=== PATIENT | female | born 1930 | race Caucasian/White ===

== ENCOUNTER 2016-06-20 16:02 | Inpatient (IN) | payer MEDICARE, BC ==
--- NOTE | 2016-06-20 16:10 | EDM.PDOC ---
ED HPI GI/ABDOMINAL - General Chief Complaint: Gastrointestinal Problem Time Seen by Provider: 06/20/16 16:04 Source of Information: Reports: Patient History Limitations: Reports: No limitations - History of Present Illness INITIAL COMMENTS - FREE TEXT/NARRATIVE: This patient is an 86 year old female that presents to the ER. Patient reports that on Monday she began feeling bad. She reports generally not feeling well, having congestion, drainage, sore throat. The patient report then early this morning she began to have diffuse abdominal cramping, vomiting, and diarrhea. She reports that she went to her PCP this morning and had a physical she was previously scheduled for. She reports that she had labs done today and was called with the results. The patent reports that she was not feeling well today and generally does not feel well. She reports she would like to come back into the hospital. I have reviewed patient labs that were drawn today. She has hypokalemia with renal insufficiency. With this, diarrhea,and vomiting, I will admit this patient. Symptom Onset Date: 06/17/16 Timing/Duration: Reports: Day(s): (3) Location: generalized Quality: Reports: cramping Severity: mild Associated Symptoms (-Female): Reports: denies other symptoms, diarrhea, loss of appetite, malaise, nausea/vomiting. Denies: chest pain, back pain, groin pain, shoulder pain, constipation, bloody stools, fever/chills - Related Data Allergies/ADRs: Allergies Allergy/AdvReac Type Severity Reaction Status Date / Time No Known Allergies Allergy Verified 06/20/16 16:16 Home Meds: Home Meds Aspirin [Halfprin] 81 mg PO DAILY 06/20/16 [History] Azithromycin [Zithromax] 250 mg PO DAILY 06/20/16 [History] Betamethasone Valerate [Valisone 0.1% Crm] 1 applic TOP ASDIRECTED PRN 06/20/16 [History] Calcium Carbonate/Vitamin D3 [Calcium 500 + Vit D 400] 1 tab PO DAILY 06/20/16 [ History] Lisinopril/Hydrochlorothiazide [Zestoretic 20-25 mg Tablet] 1 tab PO DAILY 06/20 [History] Meclizine [Antivert] 25 mg PO ASDIRECTED PRN 06/20/16 [History] Multivitamin [Multivitamins] 1 tab PO DAILY 06/20/16 [History] Nystatin/Triamcin [Nystatin-Triamcinolone Cream] 1 applic TOP ASDIRECTED PRN [History] Omeprazole 20 mg PO DAILY 06/20/16 [History] Potassium Chloride 10 meq PO TID 06/20/16 [History] Propylene Glycol/Peg 400 [Systane Ultra 0.4-0.3% Eye Drp] 1 drop EYEBOTH BID [History] Simvastatin [Simvastatin] 20 mg PO DAILY 06/20/16 [History] amLODIPine Besylate [Amlodipine Besylate] 10 mg PO DAILY 06/20/16 [History] ED ROS GENERAL - Review of Systems Review Of Systems: See Below Constitutional: Reports: no symptoms HEENT: Reports: Rhinitis, Sinus problem, Throat pain Respiratory: Reports: no symptoms Cardiovascular: Reports: No symptoms Endocrine: Reports: no symptoms GI/Abdominal: Reports: Abdominal pain, Nausea, Vomiting : Reports: no symptoms Musculoskeletal: Reports: no symptoms Skin: Reports: no symptoms Neurological: Reports: no symptoms Psychiatric: Reports: No symptoms Hematologic/Lymphatic: Reports: no symptoms Immunologic: Reports: no symptoms ED EXAM, GI/ABD - Physical Exam Exam: See Below Exam Limited By: No limitations General Appearance: alert, WD/WN, no apparent distress Eyes: bilateral: normal appearance Ears: normal external exam, normal canal, hearing grossly normal, normal TMs Nose: normal inspection, normal mucosa, no blood Throat/Mouth: Normal inspection, Normal lips, Normal teeth, Normal gums, Normal oropharynx, Normal voice, No airway compromise, Other (dry oral mucosa. ) Head: atraumatic, normocephalic Neck: normal inspection, supple, non-tender, full range of motion Respiratory/Chest: no respiratory distress, lungs clear, normal breath sounds, no accessory muscle use Cardiovascular: normal peripheral pulses, regular rate, rhythm, no edema, no gallop, no JVD, no murmur, no rub GI/Abdominal: normal bowel sounds, soft, non tender, no organomegaly, no distention, no abnormal bruit, no mass Back Exam: normal inspection, full range of motion. No: CVA tenderness (L), CVA tenderness (R) Extremities: normal inspection, normal range of motion, non-tender, no pedal edema, normal capillary refill Neurological: alert, oriented, normal cognition, normal gait, no motor/sensory deficits Psychiatric: normal affect, normal mood Skin Exam: Warm, Dry, Intact, Normal color, No rash Lymphatic: no adenopathy Course - Vital Signs Last Recorded V/S: Last Vital Signs Temp 97.0 F 06/20/16 16:05 Pulse 99 06/20/16 16:05 Resp 18 06/20/16 16:05 BP 156/68 H 06/20/16 16:05 Pulse Ox 99 06/20/16 16:37 - Orders/Labs/Meds Orders: Active Orders 24 hr Category Date Time Status Patient Status [ADT] Routine ADT 06/20/16 16:37 Active Ambulate [RC] .PRN Care 06/20/16 16:37 Active Ambulate [RC] .PRN Care 06/20/16 16:37 Active Notify Provider Vital Signs [RC] .PRN Care 06/20/16 16:37 Active Oxygen Therapy [RC] .PRN Care 06/20/16 16:37 Active Up With Assistance [RC] .PRN Care 06/20/16 16:37 Active Up to Chair [RC] .PRN Care 06/20/16 16:37 Active Vital Signs [RC] 0000,0400,0800,1200,1600,2000 Care 06/20/16 16:37 Active Clear Liquid Diet [DIET] Diet 06/20/16 Dinner Active BASIC METABOLIC PANEL,BMP [CHEM] DAILY Lab 06/21/16 05:00 Ordered BASIC METABOLIC PANEL,BMP [CHEM] DAILY Lab 06/22/16 05:00 Ordered BASIC METABOLIC PANEL,BMP [CHEM] DAILY Lab 06/23/16 05:00 Ordered CBC WITH AUTO DIFF [HEME] DAILY Lab 06/21/16 05:00 Ordered CBC WITH AUTO DIFF [HEME] DAILY Lab 06/22/16 05:00 Ordered CBC WITH AUTO DIFF [HEME] DAILY Lab 06/23/16 05:00 Ordered CBC WITH AUTO DIFF [HEME] DAILY Lab 06/24/16 05:00 Ordered MAGNESIUM [CHEM] Routine Lab 06/21/16 05:00 Ordered Acetaminophen [Tylenol] Med 06/20/16 16:37 Active 650 mg PO Q4H PRN Acetaminophen/HYDROcodone [[place] 325-5 MG] Med 06/20/16 16:37 Active 1 tab PO Q4H PRN Enoxaparin [Lovenox] Med 06/20/16 17:00 Active 30 mg SUBCUT Q24H Ibuprofen [Motrin] Med 06/20/16 16:37 Active 600 mg PO Q6H PRN Morphine Med 06/20/16 16:37 Active 2 mg IVPUSH Q2H PRN Ondansetron [Zofran] Med 06/20/16 16:37 Active 4 mg IV Q6H PRN Sodium Chloride 0.9% [Saline Flush] Med 06/20/16 16:37 Active 10 ml FLUSH ASDIRECTED PRN Saline Lock Insert [OM.PC] Routine Oth 06/20/16 16:37 Ordered Resuscitation Status Routine Resus Stat 06/20/16 16:25 Ordered Medication Orders Acetaminophen (Tylenol) 650 mg PO Q4H PRN PRN Reason: Pain (Mild 1-3)/fever Acetaminophen/Hydrocodone Bitart ([place] 325-5 Mg) 1 tab PO Q4H PRN PRN Reason: Pain (moderate 4-6) Amlodipine Besylate (Norvasc) 10 mg PO DAILY [facility] Aspirin (Halfprin) 81 mg PO DAILY [facility] Ceftriaxone Sodium (Rocephin) 1 gm IVPUSH Q24H [facility] Last Admin: 06/20/16 17:08 Dose: 1 gm Enoxaparin Sodium (Lovenox) 30 mg SUBCUT Q24H [facility] Last Admin: 06/20/16 17:08 Dose: 30 mg Potassium Chloride 40 meq/ (Premix) 100 mls @ 25 mls/hr IV ONETIME ONE Stop: 06/20/16 20:50 Sodium Chloride (Normal Saline) 1,000 mls @ 1,000 mls/hr IV .BOLUS ONE Stop: 06/20/16 17:52 Last Admin: 06/20/16 17:07 Dose: 1,000 mls/hr Ibuprofen (Motrin) 600 mg PO Q6H PRN PRN Reason: Pain (mild 1-3) Morphine Sulfate (Morphine) 2 mg IVPUSH Q2H PRN PRN Reason: Pain (severe 7-10) Non-Formulary Medication (Betamethasone Valerate) 1 applic TOP ASDIRECTED PRN PRN Reason: Rash Non-Formulary Medication (Calcium Carbonate/Vitamin D3 [Calcium 500 + Vit D 400] ) 1 tab PO DAILY [facility] Non-Formulary Medication (Lisinopril/Hydrochlorothiazide [Zestoretic 20-25 Mg Tablet]) 1 tab PO DAILY [facility] Non-Formulary Medication (Meclizine [Antivert]) 25 mg PO ASDIRECTED PRN PRN Reason: Dizziness Non-Formulary Medication (Multivitamin [Multivitamins]) 1 tab PO DAILY [facility] Non-Formulary Medication (Omeprazole [Omeprazole]) 20 mg PO DAILY [facility] Non-Formulary Medication (Potassium Chloride [Potassium Chloride]) 10 meq PO TID [facility] Non-Formulary Medication (Propylene Glycol/Peg 400 [Systane Ultra 0.4-0.3% Eye Drp]) 1 drop EYEBOTH BID [facility] Nystatin/Triamcinolone Acetonide (Mycolog Crm) 0 gm TOP ASDIRECTED PRN PRN Reason: Rash Ondansetron HCl (Zofran) 4 mg IV Q6H PRN PRN Reason: Nausea/Vomiting Simvastatin (Zocor) 20 mg PO DAILY [facility] Sodium Chloride (Saline Flush) 10 ml FLUSH ASDIRECTED PRN PRN Reason: Keep Vein Open Labs: Laboratory Tests 06/20/16 06/20/16 Range/Units 16:08 16:08 Lactic Acid 0.8 (0.4-2.0) mmol/L C-Reactive Protein 0.9 H (0.2-0.8) mg/dL Meds: Medications Generic Name Dose Route Start Last Admin Trade Name Freq PRN Reason Stop Dose Admin Acetaminophen 650 mg 06/20/16 16:37 Tylenol PO Q4H PRN Pain (Mild 1-3)/fever Acetaminophen/Hydrocodone Bitart 1 tab 06/20/16 16:37 [place] 325-5 Mg PO Q4H PRN Pain (moderate 4-6) Amlodipine Besylate 10 mg 06/21/16 08:00 Norvasc PO DAILY [facility] Aspirin 81 mg 06/21/16 08:00 Halfprin PO DAILY [facility] Ceftriaxone Sodium 1 gm 06/20/16 17:00 06/20/16 17:08 Rocephin IVPUSH 1 gm Q24H [facility] Administration Enoxaparin Sodium 30 mg 06/20/16 17:00 06/20/16 17:08 Lovenox SUBCUT 30 mg Q24H [facility] Administration Potassium Chloride 40 meq/ 100 mls @ 25 mls/hr 06/20/16 16:51 Premix IV 02/27/17 20:50 ONETIME ONE Sodium Chloride 1,000 mls @ 1,000 mls/hr 06/20/16 16:53 06/20/16 17:07 Normal Saline IV 06/20/16 17:52 1,000 mls/hr .BOLUS ONE Administration Ibuprofen 600 mg 06/20/16 16:37 Motrin PO Q6H PRN Pain (mild 1-3) Morphine Sulfate 2 mg 06/20/16 16:37 Morphine IVPUSH Q2H PRN Pain (severe 7-10) Non-Formulary Medication 1 applic 06/20/16 16:48 Betamethasone Valerate TOP ASDIRECTED PRN Rash Non-Formulary Medication 1 tab 06/21/16 08:00 Calcium Carbonate/Vitamin D3 [Calcium 500 + Vit D 400] PO DAILY [facility] Non-Formulary Medication 1 tab 06/21/16 08:00 Lisinopril/Hydrochlorothiazide [Zestoretic 20-25 Mg Tablet] PO DAILY [facility] Non-Formulary Medication 25 mg 06/20/16 16:48 Meclizine [Antivert] PO ASDIRECTED PRN Dizziness Non-Formulary Medication 1 tab 06/21/16 08:00 Multivitamin [Multivitamins] PO DAILY [facility] Non-Formulary Medication 20 mg 06/21/16 08:00 Omeprazole [Omeprazole] PO DAILY [facility] Non-Formulary Medication 10 meq 06/20/16 20:00 Potassium Chloride [Potassium Chloride] PO TID [facility] Non-Formulary Medication 1 drop 06/20/16 20:00 Propylene Glycol/Peg 400 [Systane Ultra 0.4-0.3% Eye Drp] EYEBOTH BID [facility] Nystatin/Triamcinolone Acetonide 0 gm 06/20/16 16:48 Mycolog Crm TOP ASDIRECTED PRN Rash Ondansetron HCl 4 mg 06/20/16 16:37 Zofran IV Q6H PRN Nausea/Vomiting Simvastatin 20 mg 06/21/16 08:00 Zocor PO DAILY [facility] Sodium Chloride 10 ml 06/20/16 16:37 Saline Flush FLUSH ASDIRECTED PRN Keep Vein Open Discontinued Medications Generic Name Dose Route Start Last Admin Trade Name Freq PRN Reason Stop Dose Admin Sodium Chloride Confirm 06/20/16 17:16 Normal Saline Administered 06/20/16 17:17 Dose 500 mls @ as directed .ROUTE .STK-MED ONE Departure - Departure Time of Disposition: 16:09 Disposition: Admitted As Inpatient 65 Condition: fair Clinical Impression: Renal insufficiency, Hypokalemia, Gastroenteritis, Strep pharyngitis - My Orders Last 24 Hours: My Active Orders 06/20/16 16:25 Resuscitation Status Routine 06/20/16 16:37 Patient Status [ADT] Routine Ambulate [RC] .PRN Ambulate [RC] .PRN Notify Provider Vital Signs [RC] .PRN Oxygen Therapy [RC] .PRN Up With Assistance [RC] .PRN Up to Chair [RC] .PRN Vital Signs [RC] 0000,0400,0800,1200,1600,2000 Acetaminophen [Tylenol] 650 mg PO Q4H PRN Acetaminophen/HYDROcodone [Leonard 325-5 MG] 1 tab PO Q4H PRN Ibuprofen [Motrin] 600 mg PO Q6H PRN Morphine 2 mg IVPUSH Q2H PRN Ondansetron [Zofran] 4 mg IV Q6H PRN Sodium Chloride 0.9% [Saline Flush] 10 ml FLUSH ASDIRECTED PRN Saline Lock Insert [OM.PC] Routine 06/20/16 17:00 Enoxaparin [Lovenox] 30 mg SUBCUT Q24H 06/20/16 Dinner Clear Liquid Diet [DIET] 06/21/16 05:00 BASIC METABOLIC PANEL,BMP [CHEM] DAILY CBC WITH AUTO DIFF [HEME] DAILY MAGNESIUM [CHEM] Routine 06/22/16 05:00 BASIC METABOLIC PANEL,BMP [CHEM] DAILY CBC WITH AUTO DIFF [HEME] DAILY 06/23/16 05:00 BASIC METABOLIC PANEL,BMP [CHEM] DAILY CBC WITH AUTO DIFF [HEME] DAILY 06/24/16 05:00 CBC WITH AUTO DIFF [HEME] DAILY - Assessment/Plan Last 24 Hours: My Active Orders 06/20/16 16:25 Resuscitation Status Routine 06/20/16 16:37 Patient Status [ADT] Routine Ambulate [RC] .PRN Ambulate [RC] .PRN Notify Provider Vital Signs [RC] .PRN Oxygen Therapy [RC] .PRN Up With Assistance [RC] .PRN Up to Chair [RC] .PRN Vital Signs [RC] 0000,0400,0800,1200,1600,2000 Acetaminophen [Tylenol] 650 mg PO Q4H PRN Acetaminophen/HYDROcodone [Leonard 325-5 MG] 1 tab PO Q4H PRN Ibuprofen [Motrin] 600 mg PO Q6H PRN Morphine 2 mg IVPUSH Q2H PRN Ondansetron [Zofran] 4 mg IV Q6H PRN Sodium Chloride 0.9% [Saline Flush] 10 ml FLUSH ASDIRECTED PRN Saline Lock Insert [OM.PC] Routine 06/20/16 17:00 Enoxaparin [Lovenox] 30 mg SUBCUT Q24H 06/20/16 Dinner Clear Liquid Diet [DIET] 06/21/16 05:00 BASIC METABOLIC PANEL,BMP [CHEM] DAILY CBC WITH AUTO DIFF [HEME] DAILY MAGNESIUM [CHEM] Routine 06/22/16 05:00 BASIC METABOLIC PANEL,BMP [CHEM] DAILY CBC WITH AUTO DIFF [HEME] DAILY 06/23/16 05:00 BASIC METABOLIC PANEL,BMP [CHEM] DAILY CBC WITH AUTO DIFF [HEME] DAILY 06/24/16 05:00 CBC WITH AUTO DIFF [HEME] DAILY Plan: PLEASE SEE RN NOTE FOR PFSH. PLEASE USE MY ER H&P ADMIT H&P.
[2016-06-20] MEDS ORDERED: Acetaminophen/HYDROcodone 325-5 MG Tab PO PRN (16:37)
[2016-06-20] MEDS ORDERED: Ondansetron 4 MG/2 ML SDV IV PRN (16:37)
[2016-06-20] MEDS ORDERED: Sodium Chloride 0.9% 10 ML Syringe FLUSH PRN (16:37)
[2016-06-20] MEDS ORDERED: Morphine 2 MG/ML Syringe IVPUSH PRN (16:37)
[2016-06-20] MEDS ORDERED: Ibuprofen 200 MG Tab PO PRN (16:37)
[2016-06-20] MEDS ORDERED: Non-Formulary Medication 1 Each (Meclizine [Antivert] 25 MG) PO PRN (16:48)
[2016-06-20] MEDS ORDERED: BETAMETHASONE VALERATE TOP PRN (16:48)
[2016-06-20] MEDS ORDERED: Potassium Chloride 40 MEQ in Premix Bag 1 BAG IV ONE (16:51)
[2016-06-20] MEDS ORDERED: Sodium Chloride 0.9% 1,000 ML IV ONE (16:53)
[2016-06-20] MEDS ORDERED: cefTRIAXone 1 GM Vial IVPUSH SCH (17:00)
[2016-06-20] MEDS ORDERED: Sodium Chloride 0.9% 500 ML IV SCH (17:00)
[2016-06-20] MEDS ORDERED: Enoxaparin 30 MG/0.3 ML Syringe SUBCUT SCH (17:00)
[2016-06-20] MEDS ORDERED: Sodium Chloride 0.9% 500 ML ONE (17:16)
[2016-06-20] MEDS ORDERED: Non-Formulary Medication 1 Each (Potassium Chloride [Potassium Chloride] 10 MEQ) PO SCH (20:00)
[2016-06-20] MEDS: Potassium Chloride 10 MEQ Tab.ER PO SCH (20:18)
[2016-06-20] MEDS: [UNRECOGNIZED DRUG - OTHER] EYEBOTH SCH (20:19)
[2016-06-20] MEDS: PEG EYEBOTH SCH (20:19)
[2016-06-20] MEDS: PROPYLENE GLYCOL EYEBOTH SCH (20:19)
[2016-06-21] MEDS: Acetaminophen 325 MG Tab PO PRN ×3 (04:26→23:30)
[2016-06-21] MEDS: Potassium Chloride 10 MEQ Tab.ER PO SCH ×3 (07:14→16:43)
[2016-06-21] MEDS: Aspirin 81 MG Tab.EC PO SCH (07:14)
[2016-06-21] MEDS: amLODIPine 10 MG Tab PO SCH (07:14)
[2016-06-21] MEDS ORDERED: Simvastatin 40 MG Tab PO SCH (08:00)
[2016-06-21] MEDS ORDERED: Non-Formulary Medication 1 Each (Multivitamin [Multivitamins] 1 TAB) PO SCH (08:00)
[2016-06-21] MEDS ORDERED: LISINOPRIL PO SCH (08:00)
[2016-06-21] MEDS ORDERED: HYDROCHLOROTHIAZIDE PO SCH (08:00)
[2016-06-21] MEDS ORDERED: [UNRECOGNIZED DRUG - OTHER] PO SCH (08:00)
[2016-06-21] MEDS ORDERED: Non-Formulary Medication 1 Each (Omeprazole [Omeprazole] 20 MG) PO SCH (08:00)
[2016-06-21] MEDS ORDERED: Meclizine 12.5 MG Tab PO PRN (08:11)
[2016-06-21] MEDS ORDERED: Magnesium Sulfate/D5W 2 GM in Premix Bag 1 BAG IV ONE (09:08)
[2016-06-21] MEDS: Hydrochlorothiazide 25 MG Tab PO SCH (09:25)
[2016-06-21] MEDS: Lisinopril 20 MG Tab PO SCH (09:26)
[2016-06-21] MEDS: Polyvinyl Alcohol 1.4% Ophth Soln 15 ML Bottle EYEBOTH SCH ×2 (09:26→20:16)
[2016-06-21] MEDS: Multivitamin Tab PO SCH (09:26)
[2016-06-21] MEDS: Calcium Carbonate/Vitamin D3 1250 MG-200 Unit Tab PO SCH (09:26)
[2016-06-21] MEDS: Pantoprazole 40 MG Tab.CR PO SCH (09:33)
--- NOTE | 2016-06-21 09:36 | PCM.PN ---
- General Info Date of Service: 06/21/16 Admission Dx/Problem (Free Text): Strep Throat Hypokalemia Functional Status: Reports: pain controlled, tolerating diet, ambulating - Review of Systems General: Reports: fever, weakness, fatigue HEENT: Reports: sinus congestion, sore throat, rhinitis. Denies: ear pain Pulmonary: Reports: cough. Denies: shortness of breath, wheezing Cardiovascular: Denies: chest pain, edema, lightheadedness Gastrointestinal: Denies: Constipation, Diarrhea (diarrhea improved), Nausea, Vomiting Genitourinary: Reports: no symptoms Musculoskeletal: Reports: no symptoms Skin: Reports: no symptoms Neurological: Reports: no symptoms Psychiatric: Reports: no symptoms - Patient Data Vitals - most recent: Last Vital Signs Temp 99.2 F 06/21/16 07:23 Pulse 80 06/21/16 07:23 Resp 18 06/21/16 07:23 BP 133/64 06/21/16 07:23 Pulse Ox 94 L 06/21/16 07:23 Weight - most recent: 153 lb 8 oz Lab Results last 24 hrs: Laboratory Results - last 24 hr 06/21/16 06/21/16 Range/Units 07:00 07:00 WBC 5.3 (5.0-10.0) 10^3/uL RBC 4.13 (4.00-5.50) 10^6/uL Hgb 12.2 (12.0-16.0) g/dL Hct 34.6 L (37.0-47.0) % MCV 83.8 (82.0-94.0) fL MCH 29.5 (27.0-32.0) pg MCHC 35.3 (33.0-38.0) g/dL RDW Coeff of Jono 12.2 (11.0-15.0) % Plt Count 148 L (150-400) 10^3/uL Neut % (Auto) 61.5 (35-85) % Lymph % (Auto) 22.9 (10-55) % [place] % (Auto) 15.0 (0-16) % Eos % (Auto) 0.2 (0-5) % Baso % (Auto) 0.4 (0-3) % Neut # 3.25 (1.80-7.00) 10^3/uL Lymph # 1.21 (1.00-4.80) 10^3/uL [place] # 0.79 (0.00-0.80) 10^3/uL Eos # 0.01 (0.00-0.45) 10^3/uL Baso # 0.02 10^3/uL Sodium 137 (136-145) mEq/L Potassium 3.4 L (3.5-5.0) mEq/L Chloride 101 (98-106) mEq/L Carbon Dioxide 27 (21-32) mmol/L BUN 14 (7-18) mg/dL Creatinine 1.0 (0.6-1.0) mg/dL Est Cr Clr Drug Dosing 34.23 mL/min Estimated GFR (MDRD) 52 L (>=60) mL/min Glucose 91 (75-99) mg/dL Calcium 8.2 L (8.4-10.1) mg/dL Magnesium 1.5 L (1.8-2.4) mg/dL Med Orders - Current: Current Medications Acetaminophen (Tylenol) 650 mg PO Q4H PRN PRN Reason: Pain (Mild 1-3)/fever Last Admin: 06/21/16 04:26 Dose: 650 mg Acetaminophen/Hydrocodone Bitart ([place] 325-5 Mg) 1 tab PO Q4H PRN PRN Reason: Pain (moderate 4-6) Amlodipine Besylate (Norvasc) 10 mg PO DAILY [facility] Last Admin: 06/21/16 07:14 Dose: 10 mg Artificial Tears (Liquitears 1.4% Ophth Soln) 0 ml EYEBOTH BID [facility] Aspirin (Halfprin) 81 mg PO DAILY [facility] Last Admin: 06/21/16 07:14 Dose: 81 mg Calcium Carbonate (Calcium Carbonate/Vitamin D 1250 Mg-200 Unit) 1 tab PO DAILY [facility] Ceftriaxone Sodium (Rocephin) 1 gm IVPUSH Q24H [facility] Enoxaparin Sodium (Lovenox) 30 mg SUBCUT Q24H [facility] Hydrochlorothiazide (Hydrochlorothiazide) 25 mg PO DAILY [facility] Magnesium Sulfate/Dextrose 2 (gm/ Premix) 200 mls @ 100 mls/hr IV ONETIME ONE Stop: 06/21/16 11:07 Ibuprofen (Motrin) 600 mg PO Q6H PRN PRN Reason: Pain (mild 1-3) Lisinopril (Prinivil) 20 mg PO DAILY [facility] Meclizine HCl (Antivert) 25 mg PO TID PRN PRN Reason: Dizziness Morphine Sulfate (Morphine) 2 mg IVPUSH Q2H PRN PRN Reason: Pain (severe 7-10) Multivitamins/Minerals/Vitamin C (Tab-A-Dean) 1 tab PO DAILY [facility] Non-Formulary Medication (Betamethasone Valerate) 1 applic TOP ASDIRECTED PRN PRN Reason: Rash Nystatin/Triamcinolone Acetonide (Mycolog Crm) 0 gm TOP ASDIRECTED PRN PRN Reason: Rash Ondansetron HCl (Zofran) 4 mg IV Q6H PRN PRN Reason: Nausea/Vomiting Pantoprazole Sodium (Protonix) 40 mg PO ACBRK [facility] Potassium Chloride (Klor-Con 10) 10 meq PO TIDMEALS [facility] Simvastatin (Zocor) 20 mg PO BEDTIME [facility] Sodium Chloride (Saline Flush) 10 ml FLUSH ASDIRECTED PRN PRN Reason: Keep Vein Open Discontinued Medications Ceftriaxone Sodium (Rocephin) 1 gm IVPUSH Q24H [facility] Last Admin: 06/20/16 17:08 Dose: 1 gm Enoxaparin Sodium (Lovenox) 30 mg SUBCUT Q24H [facility] Last Admin: 06/20/16 17:08 Dose: 30 mg Potassium Chloride 40 meq/ (Premix) 100 mls @ 25 mls/hr IV ONETIME ONE Stop: 06/20/16 20:50 Last Admin: 06/20/16 18:20 Dose: 25 mls/hr Sodium Chloride (Normal Saline) 1,000 mls @ 1,000 mls/hr IV .BOLUS ONE Stop: 06/20/16 17:52 Last Admin: 06/20/16 17:07 Dose: 1,000 mls/hr Sodium Chloride (Normal Saline) Confirm Administered Dose 500 mls @ as directed .ROUTE .STK-MED ONE Stop: 06/20/16 17:17 Last Admin: 06/20/16 19:46 Dose: Not Given Sodium Chloride (Normal Saline) 500 mls @ 250 mls/hr IV ASDIRECTED [facility] Stop: 06/21/16 18:59 Last Admin: 06/20/16 20:21 Dose: 250 mls/hr Non-Formulary Medication (Calcium Carbonate/Vitamin D3 [Calcium 500 + Vit D 400] ) 1 tab PO DAILY [facility] Non-Formulary Medication (Meclizine [Antivert]) 25 mg PO ASDIRECTED PRN PRN Reason: Dizziness Non-Formulary Medication (Multivitamin [Multivitamins]) 1 tab PO DAILY [facility] Non-Formulary Medication (Omeprazole [Omeprazole]) 20 mg PO DAILY [facility] Non-Formulary Medication (Potassium Chloride [Potassium Chloride]) 10 meq PO TID [facility] Last Admin: 06/20/16 20:43 Dose: Not Given Non-Formulary Medication (Propylene Glycol/Peg 400 [Systane Ultra 0.4-0.3% Eye Drp]) 1 drop EYEBOTH BID [facility] Last Admin: 06/20/16 20:19 Dose: Not Given Potassium Chloride (Klor-Con 10) 10 meq PO TID [facility] Last Admin: 06/21/16 07:14 Dose: 10 meq Simvastatin (Zocor) 20 mg PO DAILY [facility] Last Admin: 06/21/16 07:15 Dose: 20 mg - Exam General: alert, oriented HEENT: Mucous membr. moist/pink Neck: supple Lungs: Clear to auscultation, Normal respiratory effort Cardiovascular: regular rate, regular rhythm Abdomen: bowel sounds present, soft, no tenderness Extremities: no edema Skin: warm, dry Neurological: no new focal deficit Psy/Mental Status: alert, normal affect, normal mood - Problem List & Annotations (1) Hypokalemia SNOMED Code(s): 21746526 Code(s): E87.6 - HYPOKALEMIA Status: Acute Priority: High Current Visit : Yes (2) Strep pharyngitis SNOMED Code(s): 87880107, 603846809 Code(s): J02.0 - STREPTOCOCCAL PHARYNGITIS Status: Acute Priority: High Current Visit: Yes - Problem List Review Problem List Initiated/Reviewed/Updated: Yes - My Orders Last 24 Hours: My Active Orders 06/21/16 09:08 Magnesium Sulfate/D5W [Magnesium 1 GM in D5W 100 ML] 2 gm Premix Bag 1 bag IV ONETIME 06/22/16 05:11 MAGNESIUM [CHEM] Routine - Assessment Assessment:: Strep Pharyngitis Hypokalemia - Plan Plan:: Patient feeling better today. She states the diarrhea has resolved. Throat is feeling somewhat better. Mild cough yet. She did have hypokalemia yesterday. lso noted on her physical labs that were done in [place]. She was given a potassium IV bump yesterday. Potassium now improved at 3.4. Magnesium is low today at 1.5. Will correct Magnesium today with 2 gm IV Magnesium. Recheck labs in am. Continue oral potassium. Will continue with IV Rocephin. Possible discharge home tomorrow.
[2016-06-21] MEDS: [UNRECOGNIZED DRUG - OTHER] EYEBOTH SCH (09:49)
[2016-06-21] MEDS: PROPYLENE GLYCOL EYEBOTH SCH (09:49)
[2016-06-21] MEDS: PEG EYEBOTH SCH (09:49)
[2016-06-21] MEDS: Enoxaparin 30 MG/0.3 ML Syringe SUBCUT SCH (20:17)
[2016-06-21] MEDS: cefTRIAXone 1 GM Vial IVPUSH SCH (20:18)
[2016-06-22] MEDS: Pantoprazole 40 MG Tab.CR PO SCH (06:27)
[2016-06-22] MEDS: Calcium Carbonate/Vitamin D3 1250 MG-200 Unit Tab PO SCH (07:43)
[2016-06-22] MEDS: Hydrochlorothiazide 25 MG Tab PO SCH (07:44)
[2016-06-22] MEDS: Aspirin 81 MG Tab.EC PO SCH (07:44)
[2016-06-22] MEDS: Potassium Chloride 10 MEQ Tab.ER PO SCH ×3 (07:44→17:34)
[2016-06-22] MEDS: Lisinopril 20 MG Tab PO SCH (07:45)
[2016-06-22] MEDS: amLODIPine 10 MG Tab PO SCH (07:45)
[2016-06-22] MEDS: Polyvinyl Alcohol 1.4% Ophth Soln 15 ML Bottle EYEBOTH SCH ×2 (07:45→19:35)
[2016-06-22] MEDS: Multivitamin Tab PO SCH (07:46)
[2016-06-22] MEDS ORDERED: Potassium Chloride 40 MEQ in Premix Bag 1 BAG IV ONE (09:30)
[2016-06-22] MEDS: Metoprolol Tartrate 25 MG Tab PO SCH ×2 (09:52→19:33)
[2016-06-22] MEDS: Warfarin 5 MG Tab PO ONE (10:23)
--- NOTE | 2016-06-22 12:59 | PCM.PN ---
- General Info Date of Service: 06/22/16 Admission Dx/Problem (Free Text): Strep Throat Hypokalemia Functional Status: Reports: pain controlled, tolerating diet, ambulating, new symptoms (palpitations) - Review of Systems General: Denies: fever, weakness, fatigue HEENT: Reports: sore throat. Denies: ear pain, sinus congestion, rhinitis Pulmonary: Denies: shortness of breath, cough, wheezing Cardiovascular: Reports: palpitations. Denies: chest pain, edema, lightheadedness Gastrointestinal: Denies: Abdominal pain, Diarrhea, Nausea, Vomiting Genitourinary: Reports: no symptoms Musculoskeletal: Reports: no symptoms Skin: Reports: no symptoms Neurological: Reports: no symptoms - Patient Data Vitals - most recent: Last Vital Signs Temp 98.6 F 06/22/16 08:00 Pulse 130 H 06/22/16 09:52 Resp 18 06/22/16 08:00 BP 136/69 06/22/16 09:52 Pulse Ox 94 L 06/22/16 08:00 Weight - most recent: 153 lb 8 oz Lab Results last 24 hrs: Laboratory Results - last 24 hr 06/22/16 06/22/16 06/22/16 Range/Units 07:46 07:46 09:04 WBC 5.3 (5.0-10.0) 10^3/uL RBC 4.46 (4.00-5.50) 10^6/uL Hgb 13.2 (12.0-16.0) g/dL Hct 37.7 (37.0-47.0) % MCV 84.5 (82.0-94.0) fL MCH 29.6 (27.0-32.0) pg MCHC 35.0 (33.0-38.0) g/dL RDW Coeff of Jono 12.6 (11.0-15.0) % Plt Count 146 L (150-400) 10^3/uL Neut % (Auto) 58.4 (35-85) % Lymph % (Auto) 26.5 (10-55) % [place] % (Auto) 14.1 (0-16) % Eos % (Auto) 0.6 (0-5) % Baso % (Auto) 0.4 (0-3) % Neut # 3.07 (1.80-7.00) 10^3/uL Lymph # 1.39 (1.00-4.80) 10^3/uL [place] # 0.74 (0.00-0.80) 10^3/uL Eos # 0.03 (0.00-0.45) 10^3/uL Baso # 0.02 10^3/uL PT 10.4 (9.7-12.3) SEC INR 0.98 (0.92-1.18) Sodium 140 (136-145) mEq/L Potassium 3.0 L (3.5-5.0) mEq/L Chloride 103 (98-106) mEq/L Carbon Dioxide 27 (21-32) mmol/L BUN 9 (7-18) mg/dL Creatinine 1.0 (0.6-1.0) mg/dL Est Cr Clr Drug Dosing 34.23 mL/min Estimated GFR (MDRD) 52 L (>=60) mL/min Glucose 90 (75-99) mg/dL Calcium 8.5 (8.4-10.1) mg/dL Magnesium 1.8 (1.8-2.4) mg/dL Med Orders - Current: Current Medications Acetaminophen (Tylenol) 650 mg PO Q4H PRN PRN Reason: Pain (Mild 1-3)/fever Last Admin: 06/21/16 23:30 Dose: 650 mg Acetaminophen/Hydrocodone Bitart ([place] 325-5 Mg) 1 tab PO Q4H PRN PRN Reason: Pain (moderate 4-6) Amlodipine Besylate (Norvasc) 5 mg PO DAILY [facility] Artificial Tears (Liquitears 1.4% Ophth Soln) 0 ml EYEBOTH BID [facility] Last Admin: 06/22/16 07:45 Dose: 1 drop Aspirin (Halfprin) 81 mg PO DAILY [facility] Last Admin: 06/22/16 07:44 Dose: 81 mg Calcium Carbonate (Calcium Carbonate/Vitamin D 1250 Mg-200 Unit) 1 tab PO DAILY [facility] Last Admin: 06/22/16 07:43 Dose: 1 tab Ceftriaxone Sodium (Rocephin) 1 gm IVPUSH Q24H [facility] Last Admin: 06/21/16 20:18 Dose: 1 gm Enoxaparin Sodium (Lovenox) 30 mg SUBCUT Q24H [facility] Last Admin: 06/21/16 20:17 Dose: 30 mg Hydrochlorothiazide (Hydrochlorothiazide) 25 mg PO DAILY [facility] Last Admin: 06/22/16 07:44 Dose: 25 mg Potassium Chloride 40 meq/ (Premix) 100 mls @ 16.667 mls/hr IV ONETIME ONE Stop: 06/22/16 15:29 Last Admin: 06/22/16 09:43 Dose: 16.667 mls/hr Ibuprofen (Motrin) 600 mg PO Q6H PRN PRN Reason: Pain (mild 1-3) Lisinopril (Prinivil) 20 mg PO DAILY [facility] Last Admin: 06/22/16 07:45 Dose: 20 mg Meclizine HCl (Antivert) 25 mg PO TID PRN PRN Reason: Dizziness Metoprolol Tartrate (Lopressor) 37.5 mg PO BID [facility] Last Admin: 06/22/16 09:52 Dose: 37.5 mg Morphine Sulfate (Morphine) 2 mg IVPUSH Q2H PRN PRN Reason: Pain (severe 7-10) Multivitamins/Minerals/Vitamin C (Tab-A-Dean) 1 tab PO DAILY [facility] Last Admin: 06/22/16 07:46 Dose: 1 tab Non-Formulary Medication (Betamethasone Valerate) 1 applic TOP ASDIRECTED PRN PRN Reason: Rash Daily Coumadin Order (--Ask Provider) 1 each .XX DAILY [facility] Nystatin/Triamcinolone Acetonide (Mycolog Crm) 0 gm TOP ASDIRECTED PRN PRN Reason: Rash Ondansetron HCl (Zofran) 4 mg IV Q6H PRN PRN Reason: Nausea/Vomiting Pantoprazole Sodium (Protonix) 40 mg PO ACBRK [facility] Last Admin: 06/22/16 06:27 Dose: 40 mg Potassium Chloride (Klor-Con 10) 10 meq PO TIDMEALS [facility] Last Admin: 06/22/16 12:15 Dose: 10 meq Simvastatin (Zocor) 20 mg PO BEDTIME [facility] Sodium Chloride (Saline Flush) 10 ml FLUSH ASDIRECTED PRN PRN Reason: Keep Vein Open Discontinued Medications Amlodipine Besylate (Norvasc) 10 mg PO DAILY [facility] Last Admin: 06/22/16 07:45 Dose: 10 mg Ceftriaxone Sodium (Rocephin) 1 gm IVPUSH Q24H [facility] Last Admin: 06/20/16 17:08 Dose: 1 gm Enoxaparin Sodium (Lovenox) 30 mg SUBCUT Q24H [facility] Last Admin: 06/20/16 17:08 Dose: 30 mg Potassium Chloride 40 meq/ (Premix) 100 mls @ 25 mls/hr IV ONETIME ONE Stop: 06/20/16 20:50 Last Admin: 06/20/16 18:20 Dose: 25 mls/hr Sodium Chloride (Normal Saline) 1,000 mls @ 1,000 mls/hr IV .BOLUS ONE Stop: 06/20/16 17:52 Last Admin: 06/20/16 17:07 Dose: 1,000 mls/hr Sodium Chloride (Normal Saline) Confirm Administered Dose 500 mls @ as directed .ROUTE .STK-MED ONE Stop: 06/20/16 17:17 Last Admin: 06/20/16 19:46 Dose: Not Given Sodium Chloride (Normal Saline) 500 mls @ 250 mls/hr IV ASDIRECTED ROMERO Stop: 06/21/16 18:59 Last Admin: 06/20/16 20:21 Dose: 250 mls/hr Magnesium Sulfate/Dextrose 2 (gm/ Premix) 200 mls @ 100 mls/hr IV ONETIME ONE Stop: 06/21/16 11:07 Last Admin: 06/21/16 09:27 Dose: 100 mls/hr Non-Formulary Medication (Calcium Carbonate/Vitamin D3 [Calcium 500 + Vit D 400] ) 1 tab PO DAILY [facility] Last Admin: 06/21/16 09:49 Dose: Not Given Non-Formulary Medication (Meclizine [Antivert]) 25 mg PO ASDIRECTED PRN PRN Reason: Dizziness Non-Formulary Medication (Multivitamin [Multivitamins]) 1 tab PO DAILY [facility] Last Admin: 06/21/16 09:49 Dose: Not Given Non-Formulary Medication (Omeprazole [Omeprazole]) 20 mg PO DAILY [facility] Last Admin: 06/21/16 09:49 Dose: Not Given Non-Formulary Medication (Potassium Chloride [Potassium Chloride]) 10 meq PO TID [facility] Last Admin: 06/20/16 20:43 Dose: Not Given Non-Formulary Medication (Propylene Glycol/Peg 400 [Systane Ultra 0.4-0.3% Eye Drp]) 1 drop EYEBOTH BID [facility] Last Admin: 06/21/16 09:49 Dose: Not Given Potassium Chloride (Klor-Con 10) 10 meq PO TID [facility] Last Admin: 06/21/16 07:14 Dose: 10 meq Simvastatin (Zocor) 20 mg PO DAILY [facility] Last Admin: 06/21/16 07:15 Dose: 20 mg Warfarin Sodium (Coumadin) 5 mg PO ONETIME ONE Stop: 06/22/16 09:04 Last Admin: 06/22/16 10:23 Dose: 5 mg - Exam General: alert, oriented HEENT: Mucous membr. moist/pink Neck: supple Lungs: Clear to auscultation, Normal respiratory effort Cardiovascular: irregular rhythm Abdomen: bowel sounds present, soft, no tenderness Extremities: no edema Skin: warm, dry Neurological: no new focal deficit Psy/Mental Status: alert, normal affect, normal mood - Problem List & Annotations (1) Hypokalemia SNOMED Code(s): 97182398 Code(s): E87.6 - HYPOKALEMIA Status: Acute Priority: High Current Visit : Yes (2) Strep pharyngitis SNOMED Code(s): 19738637, 394799976 Code(s): J02.0 - STREPTOCOCCAL PHARYNGITIS Status: Acute Priority: High Current Visit: Yes (3) Atrial fibrillation with RVR SNOMED Code(s): 482893663496012 Code(s): I48.91 - UNSPECIFIED ATRIAL FIBRILLATION Status: Acute Priority : High Current Visit: Yes - Problem List Review Problem List Initiated/Reviewed/Updated: Yes - My Orders Last 24 Hours: My Active Orders 06/22/16 09:15 Metoprolol Tartrate [Lopressor] 37.5 mg PO BID 06/22/16 09:30 Potassium Chloride [KCL 40 MEQ in Water 100 ML] 40 meq Premix Bag 1 bag IV ONETIME 06/23/16 08:00 Non-Formulary Medication [NF Drug] 1 each .XX DAILY amLODIPine [Norvasc] 5 mg PO DAILY 06/23/16 09:04 INR,PT,PROTHROMBIN TIME [COAG] DAILY 06/24/16 09:04 INR,PT,PROTHROMBIN TIME [COAG] DAILY - Assessment Assessment:: Strep Pharyngitis Hypokalemia Atrial Fib with RVR - Plan Plan:: Patient feeling better today. She states the diarrhea has resolved. Throat is feeling somewhat better. Mild cough yet. She did have hypokalemia yesterday. lso noted on her physical labs that were done in [place]. She was given a potassium IV bump yesterday. Potassium now improved at 3.4. Magnesium is low today at 1.5. Will correct Magnesium today with 2 gm IV Magnesium. Recheck labs in am. Continue oral potassium. Will continue with IV Rocephin. Possible discharge home tomorrow. 06-22-2016 Patient admitting to palpitations today. New onset atrial fib with RVR noted on telemetry. Patient denies pain with this. Does feel her heart pounding. No shortness of breath or feeling lightheaded. Patient does not recall ever having atrial fib in the past. Admits to mild sore throat but improved. Mild cough. Patient's potassium down to 3.0 today. Magnesium improved to 1.8. Adjustments made to medications. Decreased Norvasc to 5 mg daily. Start metoprolol 37.5 mg BID. Start Coumadin. Obtain an echo. Repeat labs in am to include an INR. Will give a potassium IV bump today as well and continue the 30 meq of potassium daily. Patient aware of all the changes. Reevaluate discharge potential in am.
[2016-06-22] MEDS: cefTRIAXone 1 GM Vial IVPUSH SCH (19:32)
[2016-06-22] MEDS: Enoxaparin 30 MG/0.3 ML Syringe SUBCUT SCH (19:34)
[2016-06-22] MEDS ORDERED: Simvastatin 20 MG Tab PO SCH (20:00)
[2016-06-23] MEDS: Pantoprazole 40 MG Tab.CR PO SCH (06:50)
[2016-06-23 07:18] VITALS: BP 142/60
[2016-06-23] MEDS: Potassium Chloride 10 MEQ Tab.ER PO SCH ×2 (07:45→12:48)
[2016-06-23] MEDS: Aspirin 81 MG Tab.EC PO SCH (07:46)
[2016-06-23] MEDS: Metoprolol Tartrate 25 MG Tab PO SCH (07:46)
[2016-06-23] MEDS: Multivitamin Tab PO SCH (07:46)
[2016-06-23] MEDS: Calcium Carbonate/Vitamin D3 1250 MG-200 Unit Tab PO SCH (07:46)
[2016-06-23] MEDS: Lisinopril 20 MG Tab PO SCH (07:47)
[2016-06-23] MEDS: Hydrochlorothiazide 25 MG Tab PO SCH (07:47)
[2016-06-23] MEDS: Polyvinyl Alcohol 1.4% Ophth Soln 15 ML Bottle EYEBOTH SCH (07:49)
[2016-06-23] MEDS ORDERED: [UNRECOGNIZED DRUG - OTHER] SCH (08:00)
[2016-06-23] MEDS ORDERED: amLODIPine 2.5 MG Tab PO SCH (08:00)
--- NOTE | 2016-06-23 11:37 | PCM.DCSUM1 ---
Discharge Summary - Hospital Course Free Text/Narrative:: Patient admitted Monday evening due to complaints of weakness, sore throat, diarrhea. Patient had a physical that day and it was also noted to be hypokalemia. Potassium in clinic 2.9. Admitted for dehydration, congestion and abdominal cramping. Influenza screens were negative. Strep screen positive. Started on Rocephin. Given IV with potassium. - Discharge Data Discharge Date: 06/23/16 Discharge Disposition: Home, Self-Care 01 Condition: Good - Discharge Diagnosis/Problem(s) (1) Hypokalemia SNOMED Code(s): 42542758 ICD Code: E87.6 - HYPOKALEMIA Status: Acute Priority: High Current Visit: Yes (2) Strep pharyngitis SNOMED Code(s): 51622266, 267632763 ICD Code: J02.0 - STREPTOCOCCAL PHARYNGITIS Status: Acute Priority: High Current Visit: Yes (3) Atrial fibrillation with RVR SNOMED Code(s): 093565050635291 ICD Code: I48.91 - UNSPECIFIED ATRIAL FIBRILLATION Status: Acute Priority : High Current Visit: Yes - Patient Summary/Data Complications: new onset atrial fib Hospital Course: Patient did have resolution of her diarrhea, abdominal cramping and sore throat during stay. Kept on IV Rocephin. She has had return of her appetite and eating well. Patient did develop new onset atrial fib with RVR. Started on Coumadin and metoprolol. Reduced her dose of Norvasc to 5 mg daily. She did continue to have persisting issues with hypokalemia. Did get 2 bumps of 40 meq of IV potassium and started on oral as well. Magnesium was low so was given 2 gm of replacement with mag sulfate. Today patient has converted back to a NSR. Rate is controlled in the 80s. Potassium normal at 3.7. INR yet low but will see Dr. Cooper on Monday and have this rechecked at that time. - Patient Instructions Diet: Usual Diet as Tolerated Activity: As Tolerated - Discharge Plan Prescriptions/Med Rec: Cefuroxime [Ceftin] 250 mg PO BID #14 tablet Metoprolol Tartrate [Lopressor] 37.5 mg PO BID #60 tablet Warfarin [Coumadin] 5 mg PO DAILY #30 tablet amLODIPine [Norvasc] 5 mg PO DAILY #30 tablet Home Medications: Home Meds Aspirin [Halfprin] 81 mg PO DAILY 06/20/16 [History] Azithromycin [Zithromax] 250 mg PO DAILY 06/20/16 [History] Betamethasone Valerate [Valisone 0.1% Crm] 1 applic TOP ASDIRECTED PRN 06/20/16 [History] Calcium Carbonate/Vitamin D3 [Calcium 500 + Vit D 400] 1 tab PO DAILY 06/20/16 [ History] Lisinopril/Hydrochlorothiazide [Zestoretic 20-25 mg Tablet] 1 tab PO DAILY 06/20 [History] Meclizine [Antivert] 25 mg PO ASDIRECTED PRN 06/20/16 [History] Multivitamin [Multivitamins] 1 tab PO DAILY 06/20/16 [History] Nystatin/Triamcin [Nystatin-Triamcinolone Cream] 1 applic TOP ASDIRECTED PRN [History] Omeprazole 20 mg PO DAILY 06/20/16 [History] Potassium Chloride 10 meq PO TID 06/20/16 [History] Propylene Glycol/Peg 400 [Systane Ultra 0.4-0.3% Eye Drp] 1 drop EYEBOTH BID [History] Simvastatin 20 mg PO DAILY 06/20/16 [History] Cefuroxime [Ceftin] 250 mg PO BID #14 tablet 06/23/16 [Rx] Metoprolol Tartrate [Lopressor] 37.5 mg PO BID #60 tablet 06/23/16 [Rx] Warfarin [Coumadin] 5 mg PO DAILY #30 tablet 06/23/16 [Rx] amLODIPine [Norvasc] 5 mg PO DAILY #30 tablet 06/23/16 [Rx] Forms: ED Department Discharge Referrals: Benjamin Cooper MD [Primary Care Provider] - (Lab and see Dr. Cooper on Monday in [place]- June 27) - Discharge Summary/Plan Comment DC Time >30 min.: No Discharge Summary/Plan Comment: Discharge home. Continue metoprolol, reduce Norvasc. Start Coumadin 5 mg daily. Continue Ceftin for 7 more days. Will recheck INR and see Dr. Cooper on Monday in [place]. - General Info Date of Service: 06/23/16 Admission Dx/Problem (Free Text: Strep Throat Hypokalemia Functional Status: Reports: pain controlled, tolerating diet, ambulating - Review of Systems General: Denies: fever, weakness, fatigue HEENT: Denies: dysphasia, sinus congestion, sore throat, rhinitis Pulmonary: Denies: shortness of breath, cough, wheezing Cardiovascular: Denies: chest pain, edema, lightheadedness Gastrointestinal: Denies: Abdominal pain, Constipation, Diarrhea, Nausea, Vomiting Genitourinary: Reports: no symptoms Musculoskeletal: Reports: no symptoms Skin: Reports: no symptoms Neurological: Reports: no symptoms - Patient Data Vitals - Most Recent: Last Vital Signs Temp 98.6 F 06/23/16 07:17 Pulse 77 06/23/16 07:46 Resp 16 06/23/16 07:17 BP 142/60 H 06/23/16 07:47 Pulse Ox 94 L 06/23/16 07:17 Weight - Most Recent: 153 lb 8 oz Lab Results - Last 24 hrs: Laboratory Results - last 24 hr 06/23/16 06/23/16 06/23/16 Range/Units 07:42 07:42 07:42 WBC 5.3 (5.0-10.0) 10^3/uL RBC 4.37 (4.00-5.50) 10^6/uL Hgb 12.9 (12.0-16.0) g/dL Hct 37.4 (37.0-47.0) % MCV 85.6 (82.0-94.0) fL MCH 29.5 (27.0-32.0) pg MCHC 34.5 (33.0-38.0) g/dL RDW Coeff of Jono 12.7 (11.0-15.0) % Plt Count 148 L (150-400) 10^3/uL Neut % (Auto) 60.3 (35-85) % Lymph % (Auto) 24.4 (10-55) % [place] % (Auto) 14.1 (0-16) % Eos % (Auto) 0.6 (0-5) % Baso % (Auto) 0.6 (0-3) % Neut # 3.22 (1.80-7.00) 10^3/uL Lymph # 1.30 (1.00-4.80) 10^3/uL [place] # 0.75 (0.00-0.80) 10^3/uL Eos # 0.03 (0.00-0.45) 10^3/uL Baso # 0.03 10^3/uL PT 10.9 (9.7-12.3) SEC INR 1.03 (0.92-1.18) Sodium 140 (136-145) mEq/L Potassium 3.7 D (3.5-5.0) mEq/L Chloride 104 (98-106) mEq/L Carbon Dioxide 27 (21-32) mmol/L BUN 13 (7-18) mg/dL Creatinine 1.0 (0.6-1.0) mg/dL Est Cr Clr Drug Dosing 34.23 mL/min Estimated GFR (MDRD) 52 L (>=60) mL/min Glucose 95 (75-99) mg/dL Calcium 8.6 (8.4-10.1) mg/dL Med Orders - Current: Current Medications Acetaminophen (Tylenol) 650 mg PO Q4H PRN PRN Reason: Pain (Mild 1-3)/fever Last Admin: 06/21/16 23:30 Dose: 650 mg Acetaminophen/Hydrocodone Bitart ([place] 325-5 Mg) 1 tab PO Q4H PRN PRN Reason: Pain (moderate 4-6) Amlodipine Besylate (Norvasc) 5 mg PO DAILY [facility] Last Admin: 06/23/16 07:45 Dose: 5 mg Artificial Tears (Liquitears 1.4% Ophth Soln) 0 ml EYEBOTH BID [facility] Last Admin: 06/23/16 07:49 Dose: 1 drop Aspirin (Halfprin) 81 mg PO DAILY [facility] Last Admin: 06/23/16 07:46 Dose: 81 mg Calcium Carbonate (Calcium Carbonate/Vitamin D 1250 Mg-200 Unit) 1 tab PO DAILY [facility] Last Admin: 06/23/16 07:46 Dose: 1 tab Ceftriaxone Sodium (Rocephin) 1 gm IVPUSH Q24H [facility] Last Admin: 06/22/16 19:32 Dose: 1 gm Enoxaparin Sodium (Lovenox) 30 mg SUBCUT Q24H [facility] Last Admin: 06/22/16 19:34 Dose: 30 mg Hydrochlorothiazide (Hydrochlorothiazide) 25 mg PO DAILY [facility] Last Admin: 06/23/16 07:47 Dose: 25 mg Ibuprofen (Motrin) 600 mg PO Q6H PRN PRN Reason: Pain (mild 1-3) Lisinopril (Prinivil) 20 mg PO DAILY [facility] Last Admin: 06/23/16 07:47 Dose: 20 mg Meclizine HCl (Antivert) 25 mg PO TID PRN PRN Reason: Dizziness Metoprolol Tartrate (Lopressor) 37.5 mg PO BID [facility] Last Admin: 06/23/16 07:46 Dose: 37.5 mg Morphine Sulfate (Morphine) 2 mg IVPUSH Q2H PRN PRN Reason: Pain (severe 7-10) Multivitamins/Minerals/Vitamin C (Tab-A-Dean) 1 tab PO DAILY [facility] Last Admin: 06/23/16 07:46 Dose: 1 tab Non-Formulary Medication (Betamethasone Valerate) 1 applic TOP ASDIRECTED PRN PRN Reason: Rash Daily Coumadin Order (--Ask Provider) 1 each .XX DAILY [facility] Nystatin/Triamcinolone Acetonide (Mycolog Crm) 0 gm TOP ASDIRECTED PRN PRN Reason: Rash Ondansetron HCl (Zofran) 4 mg IV Q6H PRN PRN Reason: Nausea/Vomiting Pantoprazole Sodium (Protonix) 40 mg PO ACBRK [facility] Last Admin: 06/23/16 06:50 Dose: 40 mg Potassium Chloride (Klor-Con 10) 10 meq PO TIDMEALS [facility] Last Admin: 06/23/16 07:45 Dose: 10 meq Simvastatin (Zocor) 20 mg PO BEDTIME [facility] Last Admin: 06/22/16 19:32 Dose: 20 mg Sodium Chloride (Saline Flush) 10 ml FLUSH ASDIRECTED PRN PRN Reason: Keep Vein Open Discontinued Medications Amlodipine Besylate (Norvasc) 10 mg PO DAILY [facility] Last Admin: 06/22/16 07:45 Dose: 10 mg Ceftriaxone Sodium (Rocephin) 1 gm IVPUSH Q24H [facility] Last Admin: 06/20/16 17:08 Dose: 1 gm Enoxaparin Sodium (Lovenox) 30 mg SUBCUT Q24H [facility] Last Admin: 06/20/16 17:08 Dose: 30 mg Potassium Chloride 40 meq/ (Premix) 100 mls @ 25 mls/hr IV ONETIME ONE Stop: 06/20/16 20:50 Last Admin: 06/20/16 18:20 Dose: 25 mls/hr Sodium Chloride (Normal Saline) 1,000 mls @ 1,000 mls/hr IV .BOLUS ONE Stop: 06/20/16 17:52 Last Admin: 06/20/16 17:07 Dose: 1,000 mls/hr Sodium Chloride (Normal Saline) Confirm Administered Dose 500 mls @ as directed .ROUTE .STK-MED ONE Stop: 06/20/16 17:17 Last Admin: 06/20/16 19:46 Dose: Not Given Sodium Chloride (Normal Saline) 500 mls @ 250 mls/hr IV ASDIRECTED [facility] Stop: 06/21/16 18:59 Last Admin: 06/20/16 20:21 Dose: 250 mls/hr Magnesium Sulfate/Dextrose 2 (gm/ Premix) 200 mls @ 100 mls/hr IV ONETIME ONE Stop: 06/21/16 11:07 Last Admin: 06/21/16 09:27 Dose: 100 mls/hr Potassium Chloride 40 meq/ (Premix) 100 mls @ 16.667 mls/hr IV ONETIME ONE Stop: 06/22/16 15:29 Last Admin: 06/22/16 09:43 Dose: 16.667 mls/hr Non-Formulary Medication (Calcium Carbonate/Vitamin D3 [Calcium 500 + Vit D 400] ) 1 tab PO DAILY [facility] Last Admin: 06/21/16 09:49 Dose: Not Given Non-Formulary Medication (Meclizine [Antivert]) 25 mg PO ASDIRECTED PRN PRN Reason: Dizziness Non-Formulary Medication (Multivitamin [Multivitamins]) 1 tab PO DAILY [facility] Last Admin: 06/21/16 09:49 Dose: Not Given Non-Formulary Medication (Omeprazole [Omeprazole]) 20 mg PO DAILY [facility] Last Admin: 06/21/16 09:49 Dose: Not Given Non-Formulary Medication (Potassium Chloride [Potassium Chloride]) 10 meq PO TID [facility] Last Admin: 06/20/16 20:43 Dose: Not Given Non-Formulary Medication (Propylene Glycol/Peg 400 [Systane Ultra 0.4-0.3% Eye Drp]) 1 drop EYEBOTH BID [facility] Last Admin: 06/21/16 09:49 Dose: Not Given Potassium Chloride (Klor-Con 10) 10 meq PO TID [facility] Last Admin: 06/21/16 07:14 Dose: 10 meq Simvastatin (Zocor) 20 mg PO DAILY [facility] Last Admin: 06/21/16 07:15 Dose: 20 mg Warfarin Sodium (Coumadin) 5 mg PO ONETIME ONE Stop: 06/22/16 09:04 Last Admin: 06/22/16 10:23 Dose: 5 mg - Exam General: Reports: alert, oriented HEENT: Reports: Mucous membr. moist/pink Neck: Reports: supple Lungs: Reports: Clear to auscultation, Normal respiratory effort Cardiovascular: Reports: regular rate, regular rhythm Abdomen: Reports: bowel sounds present, soft, no tenderness Extremities: Reports: no edema Neurological: Reports: no new focal deficit *Q Meaningful Use (DIS) - VTE *Q VTE Criteria *Q: - Stroke *Q Stroke Criteria *Q: - AMI *Q AMI Criteria *Q:
[2016-06-23] MEDS ORDERED: Warfarin 5 MG Tab PO ONE (13:00)
[2016-06-23] MEDS: Warfarin 5 MG Tab PO ONE (13:54)
== END 2016-06-23 13:56 | disposition home or self-care (01) | DRG 392 ==
LOC: CC.ED 16:02 → UNDOADMIN 16:24 → CC.MS 16:24
PROVIDERS: ADMIT Nurse Practitioner; ATTEND Family Medicine
DX: K52.9 Noninfective gastroenteritis and colitis, unspecified (principal); J02.0 Streptococcal pharyngitis; E87.6 Hypokalemia; Z66 Do not resuscitate; I48.91 Unspecified atrial fibrillation; E83.42 Hypomagnesemia; Z79.82 Long term (current) use of aspirin; Z79.01 Long term (current) use of anticoagulants; Z00.00 Encounter for general adult medical examination without abnormal findings; I10 Essential (primary) hypertension; E78.00 Pure hypercholesterolemia, unspecified; E03.9 Hypothyroidism, unspecified
CPT/HCPCS: 36415; 80048; 80053; 80061; 81001; 83605; 83735; 84443; 85025; 85610; 86140; 87430; 87804; 99284; A9270-GY; J0696; J1650; J3475; J3480; J7030; J7040